=== PATIENT | female | born 1965 | race Caucasian/White ===

== ENCOUNTER 2023-02-06 06:40 | Day surgery (SDC) | payer MEDICAID ==
[~2023-02-06] VITALS: Ht 167.6 cm; Wt 68.5 kg
[2023-02-06 07:20] VITALS: O2SAT 100
[2023-02-06] MEDS ORDERED: MEPERIDINE 100 MG INJ. 100 MG/ML VIAL ONE (07:20)
[2023-02-06] MEDS ORDERED: SIMETHICONE 40 MG/0.6 ML ML ONE (07:20)
[2023-02-06] MEDS ORDERED: MIDAZOLAM HCL 5 MG/5 ML VIAL ONE (07:21)
[2023-02-06 09:20] VITALS: BP_SYST 116; PULSE 64; RESP 18
== END 2023-02-06 09:00 | disposition home or self-care (01) ==
LOC: SDS 06:40 → SMU 06:42 → SDS 09:00
PROVIDERS: ATTEND Internal Medicine Gastroenterology
DX: Z12.11 Encounter for screening for malignant neoplasm of colon (principal); R10.9 Unspecified abdominal pain; K64.9 Unspecified hemorrhoids; E78.5 Hyperlipidemia, unspecified; Z79.899 Other long term (current) drug therapy
CPT/HCPCS: 45378; 99152; 99153; G0378; J2250; J2175